=== PATIENT | female | born 1950 | race Caucasian/White ===

== ENCOUNTER → 2024-08-08 07:02 | Outpatient (REF) | payer MEDICARE, BC, SELFPAY | LOC: MRI 3T 07:02 | PROVIDERS: ATTENDING PHYSICIAN Physician Assistant Medical; FAMILY PHYSICIAN Family Medicine | DX: M54.50 Low back pain, unspecified (principal); M51.36 Other intervertebral disc degeneration, lumbar region; M48.062 Spinal stenosis, lumbar region with neurogenic claudication; M43.16 Spondylolisthesis, lumbar region | CPT/HCPCS: 72148 ==

== ENCOUNTER → 2024-09-16 09:48 | Outpatient (REF) | payer MEDICARE, BC, SELFPAY | LOC: HWWDC 09:48 | PROVIDERS: ATTENDING PHYSICIAN Family Medicine | DX: Z12.31 Encounter for screening mammogram for malignant neoplasm of breast (principal); M85.89 Other specified disorders of bone density and structure, multiple sites | CPT/HCPCS: 77063; 77067; 77080 ==

== ENCOUNTER → 2025-02-19 07:25 | Outpatient (REF) | payer OTHER, SELFPAY ==
[2025-02-19 09:53] LABS: % Basophils 1.3 % (0-2); % Eosinophils 2.9 % (0-6); % Immature Granulocytes 0.2 % (0-0.5); % Lymphocytes 30.2 % (20.5-51.1); % Monocytes 9.8 % (1.7-9.3); % Neutrophils 55.6 % (42.2-75.2); ALT (SGPT) 24 U/L (0-35); AST (SGOT) 32 U/L (14-36); Absolute Basophils 0.1 10^3/uL (0-0.2); Absolute Eosinophils 0.2 10^3/uL (0-0.7); Absolute Lymphocytes 1.7 10^3/uL (1.2-3.4); Absolute Monocytes 0.6 10^3/uL (0.1-0.6); Absolute Neutrophils 3.1 10^3/uL (1.4-6.5); Albumin 4.3 g/dl (3.5-5.0); Alkaline Phosphatase 71 U/L (38-126); Blood Urea Nitrogen 18 mg/dl (7-17); Calcium 9.9 mg/dl (8.4-10.2); Carbon Dioxide 30 mmol/L (22-30); Chloride 103 mmol/L (98-107); Glucose 100 mg/dl (70-99); HDL Cholesterol 87 mg/dl; Hematocrit 35.5 % (37.0-47.0); Hemoglobin 11.8 g/dL (12.0-16.0); LDL Cholesterol, Calculated 76 mg/dl; Mean Corp Hgb Conc. 33.2 g/dL (33.0-37.0); Mean Corpuscular Hgb 29.4 pg (27.0-31.0); Mean Corpuscular Volume 88.3 fL (81.0-99.0); Nucleated Red Blood Cells % 0 %; Platelet Count 201 10^3/uL (130-400); Potassium 3.6 mmol/L (3.5-5.1); Red Blood Cell Count 4.02 10^6/uL (4.20-5.40); Red Cell Dist. Width 13.6 % (11.5-14.5); Sodium 141 mmol/L (135-145); Total Bilirubin 0.7 mg/dl (0.2-1.3); Total Cholesterol 177 mg/dl (50-199); Total Protein 6.6 g/dl (6.3-8.2); Triglyceride 73 mg/dl (10-149); Very Low Density Lipoprotein 14 mg/dl (0-30); White Blood Cell Count 5.6 10^3/uL (4.8-10.8); eGFR > 60.00
[2025-02-19 10:19] LABS: Glycohemoglobin (HgbA1c) 5.4 % (4.0-5.6)
[2025-02-19 10:22] LABS: TSH Reflex To Free T4 4.24 uIU/ml (0.47-4.68)
== END ==
LOC: HWLAB 07:25
PROVIDERS: ATTENDING PHYSICIAN Family Medicine
DX: I10 Essential (primary) hypertension (principal); E78.2 Mixed hyperlipidemia; R73.01 Impaired fasting glucose
CPT/HCPCS: 36415; 80053; 80061; 83036; 84443; 85025

== ENCOUNTER → 2025-02-24 10:46 | Outpatient (REF) | payer OTHER, SELFPAY ==
[2025-02-24 12:49] LABS: Reticulocyte Count 1.2 % (0.4-2.8)
[2025-02-24 13:43] LABS: Blood Urea Nitrogen 16 mg/dl (7-17); Iron 102 ug/dl (37-170)
[2025-02-24 13:52] LABS: Ferritin 15.6 ng/ml (11.1-264.0); Percent Saturation 29 % (20-50); Total Iron Binding Capacity 349 ug/dl (265-497)
[2025-02-24 14:06] LABS: Vitamin B12 576 pg/ml (239-931)
[2025-02-26 14:07] LABS: Transferrin 290 mg/dL (200-360)
== END ==
LOC: HWLAB 10:46
PROVIDERS: ATTENDING PHYSICIAN Nurse Practitioner Adult Health; FAMILY PHYSICIAN Family Medicine
DX: D64.9 Anemia, unspecified (principal); R79.9 Abnormal finding of blood chemistry, unspecified
CPT/HCPCS: 36415; 82607; 82728; 83540; 83550; 84466; 84520; 85045

== ENCOUNTER → 2025-02-27 09:26 | Outpatient (REF) | payer OTHER, SELFPAY | LOC: HWLAB 09:26 | PROVIDERS: ATTENDING PHYSICIAN Nurse Practitioner Adult Health; FAMILY PHYSICIAN Family Medicine | DX: D64.9 Anemia, unspecified (principal) | CPT/HCPCS: 83520 ==

== ENCOUNTER 2025-05-23 13:25 | Emergency (ER) | payer OTHER, SELFPAY ==
[2025-05-23 13:29] VITALS: BP 140/86
--- NOTE | 2025-05-23 15:43 | ED.GENMED ---
History of Present Illness
General
Chief Complaint: Musculo-Skeletal Complaint
Source: patient
Exam Limitations: none
Time Seen by Provider: 05/23/25 15:15
Nursing documentation reviewed up to this point in time: agreed with
History of Present Illness
History of Present Illness:
Patient is a 74-year-old female presents to the ER for evaluation of left knee pain. She has been on vacation in [place] and has been doing a lot of walking more than normal. She also reports she was walking on uneven sand and started with
pain 3 days ago. She complains of pain to her anterior posterior knee she has been taking Tylenol. She denies any fever chills shortness of breath. Denies any redness to the knee.
She was concerned about blood clot. 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
Review of Systems
Review of Systems
Allergies reviewed?: Yes
All Other Systems: ROS reviewed and negative except as documented in HPI and ROS
Phy Exam
General Physical Exam
General Presentation: no apparent distress
General age: appears stated age
General Skin: warm and dry
General Habitus: normal
General Mental: alert
General Hydration: appears well hydrated
Neurological Exam
Neurological Exam: alert and oriented x3
Musculoskeletal Exam
Musculoskeletal Exam: other (Left lower extremity strong pulses patient with swelling to the posterior knee able to flex and extend feels mildly stiff with flexion no obvious joint effusion no erythema no calf tenderness or swelling strong distal
pulses normal sensation)
Skin Exam
Skin Exam: normal color and warm/dry
Psychiatric Exam
Psychiatric Exam: normal mood/affect
Course
Orders/Labs/Results
Orders:
Orders
05/23/25 15:42
Ibuprofen [Motrin] 400 mg PO NOW STA
Knee, Left 4 or More Views [CR Knee - Left 4 Or More View*] Urgent
Comment:
Reason For Exam: pain
Venous Doppler Lwr Ext Left [US Periph Venous LOWER Ext LT] Urgent
Comment:
Reason For Exam: swelling to pain to posterior knee/leg
Vital Signs
Initial and Last Documented VS:
Initial Vital Signs
Temp Pulse Resp BP Pulse Ox
98.1 F 72 18 140/86 98
05/23/25 13:29 05/23/25 13:29 05/23/25 13:29 05/23/25 13:29 05/23/25 13:29
Last Documented Vital Signs
Temp Pulse Resp BP Pulse Ox
98.1 F 70 16 122/80 98
05/23/25 13:29 05/23/25 15:49 05/23/25 15:49 05/23/25 15:49 05/23/25 15:49
MDM/Problems Addressed
Differential Diagnosis Includes:
Not limited knee sprain strain less likely fracture less likely DVT
MDM/Problems Addressed:
Patient with no acute injury however has had knee pain since walking on the beach and walking more than normal and hold head. She wanted to ensure there was no DVT. On exam she has fullness behind her posterior knee. 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
Noriega's cyst. No DVT., X-ray does show moderate effusion. Will DC with small knee immobilizer. Patient has an appointment with [facility] Next week.
Discussed ice ibuprofen and knee immobilizer
*Pulse Oximetry
SaO2: 98
Oxygen Mode of Delivery: Room air
Patient hypoxic: no (98% ra )
*Critical Care Note
Total Time (30-74mins, 75-104mins- exclusive of procedures): Not Applicable
ED Attending Note
-
Portions of this chart may have been created with voice recognition software.� Occasional wrong word or��sound alike� substitutions may have occurred due to the inherent limitations of voice recognition software.
Discharge Plan
Departure
Patient Disposition: Home (Routine Discharge)
Date of Disposition: 05/23/25
Time of Disposition: 17:35
Patient with high blood pressure during this ER visit?: Yes
Condition: Fair
Covid-19: Not Applicable
Discharge Problem:
Acute knee pain, Noriega cyst
Instructions: Knee pain - ED discharge instructions, BLOOD PRESSURE
Prescriptions:
No Action
atorvastatin 10 mg Tablet
10 mg PO DAILY
famotidine 40 mg Tablet
40 mg PO QPM
acetaminophen 500 mg Tablet
1,000 mg PO Q6H PRN (Reason: pain)
desloratadine 5 mg Tablet
5 mg PO QPM
hydrochlorothiazide 25 mg Tablet
25 mg PO DAILY
cholecalciferol (vitamin D3) [Vitamin D3] 25 mcg (1,000 unit) Tablet
50 mcg PO QPM
Women's 50 Plus Multivitamin 400 mcg-500 mg calcium-20 mcg Tablet
1 tab PO DAILY
acetaminophen [acetaminophen] 325 mg tablet
650 mg PO Q4HPRN PRN (Reason: mild pain) Qty: 1 0RF
ibuprofen 200 mg tablet
400 - 600 mg PO Q6HPRN PRN (Reason: moderate pain) Qty: 1 0RF
Referrals:
Anna Beach MD [Family Provider, Family Practice]
Activity Restrictions/Additional Instructions:
As discussed wear immobilizer for support but remove at night while sleeping. Keep elevated as much as possible. You may ice the area intermittently over the next 24 to 48 hours 20 minutes at a time several times a day. You may continue to take
Tylenol but may also alternate with ibuprofen 400 mg every to hours with food
Closely follow-up with your orthopedic doctor as scheduled next week return if any worsening of symptoms.
Interventions
Interventions:
*Risk Screen - Suicide Last Done: 05/23/25 13:29
*General Assessment Last Done: 05/23/25 15:43
*Neglect/Abuse Screening Last Done: 05/23/25 13:29
*ED- Fall Risk Assessment Last Done: 05/23/25 15:43
*ED COVID-19 Vaccine History Last Done: 05/23/25 15:43
ED-Musculoskeletal Assessment Last Done: 05/23/25 15:43
Discharge Date and Time
Print Language: SINHALA
[2025-05-23] MEDS: MOTRIN 400 MG PO (15:48)
[2025-05-23 15:49] VITALS: BP 122/80
== END 2025-05-23 17:44 | disposition home or self-care (01) ==
LOC: EMR 13:25
PROVIDERS: EMERGENCY PHYSICIAN Emergency Medicine; FAMILY PHYSICIAN Family Medicine
DX: M25.562 Pain in left knee (principal); M71.22 Synovial cyst of popliteal space [Baker], left knee; M25.462 Effusion, left knee; M79.605 Pain in left leg; R03.0 Elevated blood-pressure reading, without diagnosis of hypertension; K57.90 Diverticulosis of intestine, part unspecified, without perforation or abscess without bleeding; K21.9 Gastro-esophageal reflux disease without esophagitis; K44.9 Diaphragmatic hernia without obstruction or gangrene; Z87.891 Personal history of nicotine dependence; Z88.0 Allergy status to penicillin
CPT/HCPCS: 99284; 29505; 73564; 93971

== ENCOUNTER → 2025-10-01 07:47 | Outpatient (REF) | payer OTHER, SELFPAY ==
[2025-10-01 10:38] LABS: Hematocrit 38.2 % (37.0-47.0); Hemoglobin 12.6 g/dL (12.0-16.0); Mean Corp Hgb Conc. 33.0 g/dL (33.0-37.0); Mean Corpuscular Volume 92.3 fL (81.0-99.0); Nucleated Red Blood Cells % 0 %; Platelet Count 223 10^3/uL (130-400); Red Cell Dist. Width 13.0 % (11.5-14.5)
[2025-10-01 11:48] LABS: ALT (SGPT) 19 U/L (0-35); AST (SGOT) 27 U/L (14-36); Albumin 4.4 g/dl (3.5-5.0); Alkaline Phosphatase 59 U/L (38-126); Blood Urea Nitrogen 14 mg/dl (7-17); Calcium 9.8 mg/dl (8.4-10.2); Carbon Dioxide 30 mmol/L (22-30); Chloride 101 mmol/L (98-107); Glucose 107 mg/dl (70-99); HDL Cholesterol 84 mg/dl; LDL Cholesterol, Calculated 87 mg/dl; Potassium 3.5 mmol/L (3.5-5.1); Sodium 139 mmol/L (135-145); Total Protein 6.8 g/dl (6.3-8.2); Very Low Density Lipoprotein 15 mg/dl (0-30); eGFR > 60.00
[2025-10-03 09:39] LABS: Glycohemoglobin (HgbA1c) 5.4 % (4.0-5.9)
== END ==
LOC: HWLAB 07:47
PROVIDERS: ATTENDING PHYSICIAN Internal Medicine
DX: I10 Essential (primary) hypertension (principal); E78.00 Pure hypercholesterolemia, unspecified
CPT/HCPCS: 36415; 80053; 80061; 83036; 84443; 85025